=== PATIENT | female | born 1975 | race Caucasian/White ===

== ENCOUNTER 2023-02-10 10:10 | Observation (INO) | payer BC ==
[2023-02-08 08:45] LABS: BASOPHILS % 0.6 % (0.0-1.0); EOSINOPHILS # (AUTO) 0.1 (0.0-0.4); EOSINOPHILS % 2.8 % (0.0-6.0); HEMATOCRIT 40.5 % (34.2-44.1); LYMPHOCYTES # (AUTO) 1.5 (1.0-3.2); LYMPHOCYTES % 31.4 % (18.0-39.1); MEAN CORPUSCULAR HEMOGLOBIN 28.1 pg (28-32); MEAN CORPUSCULAR HGB CONC 32.1 g/dL (31-35); MEAN CORPUSCULAR VOLUME 87.7 fL (81-99); MONOCYTES # (AUTO) 0.3 (0.2-0.8); MONOCYTES % 7.1 % (4.4-11.3); NEUTROPHILS # (AUTO) 2.7 (2.1-6.9); NEUTROPHILS % 57.9 % (38.7-80.0); PLATELET COUNT 272 x10e3/uL (140-360); RED BLOOD COUNT 4.62 x10e6/uL (3.6-5.1); RED CELL DISTRIBUTION WIDTH 12.7 % (11.7-14.4)
[2023-02-08 09:14] LABS: CLARITY,URINE CLEAR (CLEAR); COLOR,URINE YELLOW (YELLOW); KETONES,URINE NEGATIVE (NEGATIVE); LEUKOCYTE ESTERASE ,URINE NEGATIVE (NEGATIVE); NITRITE,URINE NEGATIVE (NEGATIVE); PROTEIN,URINE DIPSTICK MODERATE (NEGATIVE); URINE UROBILINOGEN 0.2 mg/dL (0.2 - 1)
[~2023-02-10] VITALS: Ht 167.6 cm; Wt 49.0 kg
[~2023-02-10 10:10] MED LIST: BENADRYL25 M1 PO; CITALOPRAM HBR20 MG PO; FAMOTIDINE20 MG PO; FERROUS SULFAT324 MG PO; FRUIT & VEGETA1 EACH PO; MAGNESIUM100 MG PO; PANTOPRAZOLE SO20 MG PO; PROBIOTIC & AC1 EACH PO; VALACYCLOVIR500 MG PO; ZYRTEC10 MG PO
[2023-02-10] MEDS ORDERED: CEFAZOLIN SODIUM 0 GM ONE (10:32)
[2023-02-10] MEDS ORDERED: LACTATED RINGER'S 1,000 ML ONE (10:32)
[2023-02-10] MEDS ORDERED: EPHEDRINE SULFATE INJ 50 MG/ML VIAL ONE (11:54)
[2023-02-10] MEDS ORDERED: KETOROLAC TROMETHAMINE 30 MG/ML VIAL ONE (11:54)
[2023-02-10] MEDS ORDERED: SEVOFLURANE INHAL SOLN 250 ML PEN BTL ONE (11:54)
[2023-02-10] MEDS ORDERED: PROPOFOL IV EMULSION 10 MG/ML 20 ML VIAL ONE (11:54)
[2023-02-10] MEDS ORDERED: ONDANSETRON HCL INJ 2MG/ML 2ML 2 MG/ML VIAL ONE (11:54)
[2023-02-10] MEDS ORDERED: LIDOCAINE HCL 2% LOCAL INJ 5 ML SDV VIAL INJ ONE (11:54)
[2023-02-10] MEDS ORDERED: POVIDONE IODINE 0.05% 0.05 % ML PO ONE (11:54)
[2023-02-10] MEDS ORDERED: ROCURONIUM BROMIDE 10 MG/ML 5ML VIAL IV ONE (11:54)
[2023-02-10] MEDS ORDERED: DEXAMETHASONE SOD PHOS INJ 4 MG/ML SDV ONE (11:54)
[2023-02-10] MEDS ORDERED: BUPIVACAINE 0.25% 30ML SDV ONE (12:21)
[2023-02-10] MEDS ORDERED: BUPIVACAINE 0.5%/EPI 30 ML SDV INJ ONE (12:21)
[2023-02-10] MEDS ORDERED: ACETAMINOPHEN 1000 MG/100 ML 100 ML IV ONE (12:28)
[2023-02-10] MEDS ORDERED: SUGAMMADEX SODIUM 200 MG/2 ML VIAL IV ONE (12:28)
[2023-02-10] MEDS ORDERED: FENTANYL CITRATE/PF 100MCG/2 ML INJ ONE ×2 (13:46)
[2023-02-10] MEDS ORDERED: DIPHENHYDRAMINE HCL 25 MG CAP PO PRN ×2 (16:45)
[2023-02-10] MEDS ORDERED: ONDANSETRON HCL INJ 2MG/ML 2ML 2 MG/ML VIAL IV PRN (16:45)
[2023-02-10] MEDS ORDERED: ACETAMINOPHEN 325 MG TAB PO PRN (16:45)
[2023-02-10] MEDS ORDERED: BISACODYL 10 MG SUPP PR PRN (16:45)
[2023-02-10] MEDS ORDERED: MEPERIDINE HCL INJ 25 MG/ML VIAL ONE (16:49)
[2023-02-10] MEDS: TRAMADOL HCL 50 MG TAB PO PRN (18:06)
[2023-02-10] MEDS: SIMETHICONE 80 MG CHEW PO SCH ×2 (18:08→22:04)
[2023-02-10 18:13] VITALS: BP 148/99; PULSE 101; RESP 18; TEMP 97.8; O2SAT 99
[2023-02-10 18:21] VITALS: BP 148/99; PULSE 101; RESP 18; TEMP 97.8; O2SAT 99
[2023-02-10 20:00] VITALS: BP 148/99; PULSE 101; RESP 18; TEMP 97.8; O2SAT 99
[2023-02-10 20:38] VITALS: BP 151/96; PULSE 97; RESP 18; TEMP 97.9; O2SAT 97
[2023-02-10] MEDS ORDERED: SODIUM CHLORIDE 0.9% 100 ML ONE (21:35)
[2023-02-10] MEDS: DOCUSATE SODIUM 100 MG CAP PO PRN (22:05)
[2023-02-11] VITALS (7 sets, daily range): BP systolic 135–143; BP diastolic 82–93; PULSE 81–98; RESP 17–21; TEMP 98.4–99; O2SAT 96–99
[2023-02-11 07:08] LABS: BASOPHILS % 0.3 % (0.0-1.0); EOSINOPHILS % 0.1 % (0.0-6.0); HEMATOCRIT 37.2 % (34.2-44.1); HEMOGLOBIN 12.5 g/dL (12.0-16.0); LYMPHOCYTES # (AUTO) 1.7 (1.0-3.2); MEAN CORPUSCULAR HEMOGLOBIN 28.2 pg (28-32); MEAN CORPUSCULAR HGB CONC 33.6 g/dL (31-35); MEAN CORPUSCULAR VOLUME 83.8 fL (81-99); MONOCYTES # (AUTO) 0.6 (0.2-0.8); MONOCYTES % 5.9 % (4.4-11.3); NEUTROPHILS # (AUTO) 7.7 (2.1-6.9); NEUTROPHILS % 76.3 % (38.7-80.0); PLATELET COUNT 287 x10e3/uL (140-360); RED BLOOD COUNT 4.44 x10e6/uL (3.6-5.1); RED CELL DISTRIBUTION WIDTH 12.7 % (11.7-14.4)
[2023-02-11] MEDS ORDERED: FAMOTIDINE 20 MG TAB PO SCH (07:30)
[2023-02-11] MEDS ORDERED: PANTOPRAZOLE SOD 40 MG TABEC PO SCH (07:30)
[2023-02-11] MEDS: DOCUSATE SODIUM 100 MG CAP PO PRN (07:39)
[2023-02-11] MEDS: TRAMADOL HCL 50 MG TAB PO PRN (07:40)
[2023-02-11] MEDS: SIMETHICONE 80 MG CHEW PO SCH ×2 (07:40→13:20)
[2023-02-11] MEDS ORDERED: LORATADINE 10 MG TAB PO SCH (09:00)
[2023-02-11] MEDS ORDERED: LACTOBACILLUS ACIDOPHILUS CAPSULE PO SCH (09:00)
[2023-02-11] MEDS ORDERED: CITALOPRAM HYDROBROMIDE 20 MG TAB PO SCH (09:00)
[2023-02-11] MEDS ORDERED: FERROUS SULFATE 325 MG TAB PO SCH (09:00)
[2023-02-11] MEDS ORDERED: CEFAZOLIN SODIUM 2 GM in SODIUM CHLORIDE 0.9% 100 ML IV SCH (14:00)
== END 2023-02-11 14:50 | disposition home or self-care (01) ==
LOC: OR 10:10 → PACU V 15:46 → MED/SURG 17:25
PROVIDERS: ADMIT Obstetrics & Gynecology; ATTEND Obstetrics & Gynecology
DX: N92.0 Excessive and frequent menstruation with regular cycle (principal); N94.6 Dysmenorrhea, unspecified; K66.0 Peritoneal adhesions (postprocedural) (postinfection); K21.9 Gastro-esophageal reflux disease without esophagitis; F41.9 Anxiety disorder, unspecified
CPT/HCPCS: 36415 ×2; 49329; 58571; 81003; 84702; 85025 ×2; 86850; 86900; 88307; 94799; G0378 ×2; J0131; J0690 ×2; J1100; J1885; J2001; J2175; J2405; J2704; J7050 ×2; J7121; S0164